=== PATIENT | female | born 1930 | race Caucasian/White ===

== ENCOUNTER 2017-12-27 15:12 | Inpatient (IN) | payer SELFPAY ==
[~2017-12-27] VITALS: Ht 149.9 cm; Wt 43.2 kg
[2017-12-27 15:20] VITALS: Ht 149.9 cm; Wt 43.2 kg
[2017-12-27 17:23] LABS: BASOPHIL % 0.6 % (0-2); PLATELET COUNT 154 x10^3mcL (130-400)
[2017-12-27 17:28] LABS: RED CELL DISTRIBUTION WIDTH 15.7 % (11.5-14.5)
[2017-12-27 17:36] LABS: ALKALINE PHOSPHATASE 245 U/L (46-116); ALT/SGPT 30 U/L (14-59); AST/SGOT 28 U/L (15-37); BILIRUBIN TOTAL 0.47 mg/dL (0.20-1.00); CALCIUM 7.7 mg/dL (8.5-10.1); CARBON DIOXIDE 13.2 mmol/L (21-32); CHLORIDE SERUM 107 mmol/L (98-107); CREATININE SERUM 2.9 mg/dL (0.6-1.0); GLUCOSE SERUM 169 mg/dL (74-106); SODIUM SERUM 125 mmol/L (136-145); TOTAL PROTEIN, SERUM 7.1 g/dL (6.4-8.2)
[2017-12-27 17:41] LABS: ALBUMIN 2.6 g/dL (3.4-5.0)
[2017-12-27 17:42] LABS: POTASSIUM SERUM 6.6 mmol/L (3.5-5.1)
[2017-12-27 19:21] LABS: microscopic required? YES; urine erythrocyte 2+ (NEGATIVE)
[2017-12-27 19:54] VITALS: BP 167/70
[2017-12-27 19:59] VITALS: BP 167/70
[2017-12-27 20:20] LABS: MAGNESIUM 2.9 mg/dL (1.8-2.4); PHOSPHOROUS 5.5 mg/dL (2.5-4.9)
[2017-12-27 20:30] LABS: FREE T4 1.16 ng/dL (0.76-1.46); FREE THYROXINE INDEX 2.7 ug/dL (1.4-4.5); T4(THYROXINE) 7.6 ug/dL (4.7-13.3)
[2017-12-27 20:38] VITALS: BP 167/70
[2017-12-27] MEDS ORDERED: ALBUTEROL SULFAT0.51 NEB (21:06)
[2017-12-27] MEDS ORDERED: METFORMIN HCL850 MG PO (21:06)
[2017-12-27 21:56] LABS: CALCIUM 7.2 mg/dL (8.5-10.1); CARBON DIOXIDE 16.7 mmol/L (21-32); CHLORIDE SERUM 111 mmol/L (98-107); CREATININE SERUM 2.9 mg/dL (0.6-1.0); GLUCOSE SERUM 162 mg/dL (74-106); SODIUM SERUM 139 mmol/L (136-145)
[2017-12-27 21:58] LABS: POTASSIUM SERUM 5.9 mmol/L (3.5-5.1)
[2017-12-27 21:59] LABS: T3 TOTAL 0.9 ng/mL
[2017-12-28 06:11] VITALS: BP 160/76
[2017-12-28 07:45] LABS: CALCIUM 7.5 mg/dL (8.5-10.1); CARBON DIOXIDE 15.3 mmol/L (21-32); CHLORIDE SERUM 111 mmol/L (98-107); CREATININE SERUM 2.8 mg/dL (0.6-1.0); GLUCOSE SERUM 249 mg/dL (74-106); POTASSIUM SERUM 5.1 mmol/L (3.5-5.1); SODIUM SERUM 139 mmol/L (136-145)
[2017-12-28 07:48] LABS: IRON 43 ug/dL (50-170)
[2017-12-28 07:49] LABS: TOTAL IRON BINDING CAPACITY 217 ug/dL (250-450)
[2017-12-28 08:16] LABS: BASOPHIL % 0 % (0-2); PLATELET COUNT 105 x10^3mcL (130-400); RED CELL DISTRIBUTION WIDTH 15.6 % (11.5-14.5)
[2017-12-28 08:18] LABS: RED BLOOD CELLS 2.33 M/mm3 (4.10-5.10)
[2017-12-28 08:54] LABS: MAGNESIUM 2.7 mg/dL (1.8-2.4); PHOSPHOROUS 5.3 mg/dL (2.5-4.9)
[2017-12-28 09:39] VITALS: BP 138/78
[2017-12-28 13:19] VITALS: BP 135/61
[2017-12-28 16:52] VITALS: BP 140/74
[2017-12-28 22:05] VITALS: BP 134/74
[2017-12-29 06:18] VITALS: BP 144/64
[2017-12-29 07:41] LABS: CALCIUM 7.4 mg/dL (8.5-10.1); CARBON DIOXIDE 18.9 mmol/L (21-32); CHLORIDE SERUM 111 mmol/L (98-107); CREATININE SERUM 2.9 mg/dL (0.6-1.0); GLUCOSE SERUM 111 mg/dL (74-106); POTASSIUM SERUM 4.4 mmol/L (3.5-5.1); SODIUM SERUM 141 mmol/L (136-145)
[2017-12-29 09:16] VITALS: BP 147/64
[2017-12-29 09:17] LABS: BASOPHIL % 0.5 % (0-2)
[2017-12-29 09:19] LABS: PLATELET COUNT 117 x10^3mcL (130-400); RED CELL DISTRIBUTION WIDTH 15.8 % (11.5-14.5)
[2017-12-29 13:38] VITALS: BP 121/52
[2017-12-29 16:42] VITALS: BP 121/55
[2017-12-29 21:11] VITALS: BP 147/59
[2017-12-30 05:57] VITALS: BP 128/66
[2017-12-30 07:00] LABS: CALCIUM 7.4 mg/dL (8.5-10.1); CARBON DIOXIDE 18.5 mmol/L (21-32); CHLORIDE SERUM 110 mmol/L (98-107); GLUCOSE SERUM 109 mg/dL (74-106); POTASSIUM SERUM 4.9 mmol/L (3.5-5.1); SODIUM SERUM 141 mmol/L (136-145)
[2017-12-30 08:12] LABS: BASOPHIL % 0.4 % (0-2); PLATELET COUNT 126 x10^3mcL (130-400); RED CELL DISTRIBUTION WIDTH 16.4 % (11.5-14.5)
[2017-12-30 08:17] VITALS: BP 128/66
[2017-12-30 09:46] VITALS: BP 123/59
[2017-12-30 14:26] VITALS: BP 127/62
[2017-12-30] MEDS ORDERED: LAC PO (16:26)
[2017-12-30] MEDS ORDERED: CLINDAMYCIN HC300 MG PO (16:26)
[2017-12-30] MEDS ORDERED: LEVAQUIN500 M1 PO (16:26)
[2017-12-30] MEDS ORDERED: FER300 PO (16:29)
[2017-12-30] MEDS ORDERED: COR3 PO (16:30)
[2017-12-30] MEDS ORDERED: NOR5 PO (16:31)
[2017-12-30] MEDS ORDERED: L40 PO (16:31)
[2017-12-30] MEDS ORDERED: COL100 PO (16:32)
[2017-12-30] MEDS ORDERED: SOD650 PO (16:32)
[2017-12-30] MEDS ORDERED: ROBDML PO (16:32)
[2017-12-30] MEDS ORDERED: VITC PO (16:33)
[2017-12-30] MEDS ORDERED: PRI20 PO (16:33)
[2017-12-30] MEDS ORDERED: ACETAMINOPHEN-H1 TA1 PO (16:34)
[2017-12-30 18:06] VITALS: BP 127/62
[2017-12-30 18:33] VITALS: BP 115/52
== END 2017-12-30 21:37 | disposition home health service (06) | DRG 177 ==
LOC: ED 15:12 → DU 18:02
PROVIDERS: Emergency Medicine; Family Medicine
PROC: 5A09457 Assistance with Respiratory Ventilation, 24-96 Consecutive Hours, Continuous Positive Airway Pressure (ICD-10-PCS; principal; 2017-12-27)
DX: J69.0 Pneumonitis due to inhalation of food and vomit (principal); J96.00 Acute respiratory failure, unspecified whether with hypoxia or hypercapnia; N18.6 End stage renal disease; N17.0 Acute kidney failure with tubular necrosis; E43 Unspecified severe protein-calorie malnutrition; I50.43 Acute on chronic combined systolic (congestive) and diastolic (congestive) heart failure; E87.2 Acidosis; N39.0 Urinary tract infection, site not specified; E87.1 Hypo-osmolality and hyponatremia; J45.901 Unspecified asthma with (acute) exacerbation; J90 Pleural effusion, not elsewhere classified; I13.2 Hypertensive heart and chronic kidney disease with heart failure and with stage 5 chronic kidney disease, or end stage renal disease; R18.8 Other ascites; E86.0 Dehydration; E11.51 Type 2 diabetes mellitus with diabetic peripheral angiopathy without gangrene; E11.22 Type 2 diabetes mellitus with diabetic chronic kidney disease; Z99.2 Dependence on renal dialysis; Z96.641 Presence of right artificial hip joint; E87.5 Hyperkalemia; D64.9 Anemia, unspecified; E83.42 Hypomagnesemia; E83.39 Other disorders of phosphorus metabolism; Z90.710 Acquired absence of both cervix and uterus; I08.1 Rheumatic disorders of both mitral and tricuspid valves
CPT/HCPCS: 36600; 82962; 83880; 84439; 87804; J0610; J1815; J1956; J2930; J3490; J7030; J7613; J7620; J7644; Q0092